=== PATIENT | male | born 1950 ===

== ENCOUNTER 2020-09-29 10:51 | Outpatient (CLI) | payer OTHER | END 2020-09-29 10:56 | disposition home or self-care (01) | LOC: RAD 10:51 | PROVIDERS: ATTEND Neurological Surgery | DX: M48.062 Spinal stenosis, lumbar region with neurogenic claudication (principal); M47.26 Other spondylosis with radiculopathy, lumbar region; M51.16 Intervertebral disc disorders with radiculopathy, lumbar region; M51.37 Other intervertebral disc degeneration, lumbosacral region; M43.8X9 Other specified deforming dorsopathies, site unspecified ==